=== PATIENT | female | born 1960 | race Caucasian/White ===

== ENCOUNTER 2022-01-06 04:22 | Day surgery (SDC) | payer OTHER ==
[2022-01-03 10:19] VITALS: BMI 19.5
[2022-01-06 11:17] VITALS: TEMP 98.2
[2022-01-06 11:45] VITALS: BP 154/69; PULSE 61
== END 2022-01-06 12:02 | disposition home or self-care (01) ==
LOC: JASU-ENDO 04:22
PROVIDERS: ATTEND Internal Medicine Gastroenterology
PROC: 06LY8CC Occlusion of Hemorrhoidal Plexus with Extraluminal Device, Via Natural or Artificial Opening Endoscopic (ICD-10-PCS; principal; 2022-01-06 10:30)
DX: Z12.11 Encounter for screening for malignant neoplasm of colon (principal); K64.8 Other hemorrhoids; Z80.0 Family history of malignant neoplasm of digestive organs

== ENCOUNTER 2023-10-06 12:20 | Inpatient (IN) | payer BC ==
[2023-10-06] MEDS ORDERED: ACETAMINOPHEN INJECTION 100 ML IVPB ONE (13:44)
[2023-10-06] MEDS ORDERED: ONDANSETRON 4 MG/2 ML VIAL ONE (13:44)
[2023-10-06] MEDS: ACETAMINOPHEN 1000 MG/100 ML BAG IVPB ONE (14:20)
[2023-10-06] MEDS: ONDANSETRON 4 MG/2 ML VIAL IVPUSH ONE (14:30)
[2023-10-06 14:40] LABS: HEMATOCRIT 22.6 % (32.4-45.2); HEMOGLOBIN 7.6 G/dL (10.7-15.3); MCH 27.7 pg (25.7-33.7); MCHC 33.4 g/dl (32.0-36.0); MEAN CELL VOLUME 82.8 fl (80-96); MEAN PLT VOLUME 7.4 fl (7.5-11.1); PLATELET COUNT 427.1 10^3/uL (134-434); RBC 2.73 10^6/uL (3.60-5.2); RDW 14.1 % (11.6-15.6); WHITE BLOOD COUNT 12.2 10^3/uL (4.0-10.8)
[2023-10-06 14:44] LABS: PLATELET ESTIMATE ADEQUATE
[2023-10-06 14:59] LABS: ALBUMIN 3.2 g/dl (3.4-5.0); BILIRUBIN,TOTAL 0.5 mg/dl (0.2-1); CALCIUM 8.3 mg/dl (8.5-10.1); CREATININE 0.5 mg/dl (0.6-1.3); POTASSIUM 3.5 mmol/L (3.5-5.1); TOT PROT 5.9 g/dl (6.4-8.2)
[2023-10-06] MEDS ORDERED: ACETAMINOPHEN 1000 MG/100 ML BAG IVPB PRN (21:29)
[2023-10-06 22:15] LABS: HEMATOCRIT 26.5 % (32.4-45.2); MCH 28.1 pg (25.7-33.7); MCHC 33.9 g/dl (32.0-36.0); MEAN CELL VOLUME 82.7 fl (80-96); MEAN PLT VOLUME 7.2 fl (7.5-11.1); RDW 14.3 % (11.6-15.6); WHITE BLOOD COUNT 8.3 10^3/uL (4.0-10.8)
[2023-10-06 22:34] LABS: ACTIVATED PTT 29.8 SECONDS (25.2-36.5); INR 1.47 (0.83-1.09)
[2023-10-07 00:47] LABS: LDH 147 U/L (84-246)
[2023-10-07 00:55] LABS: IRON SERUM 27 ug/dL (50-175); TOTAL IRON BINDING CAPACITY 196 ug/dL (250-450)
[2023-10-07] MEDS: LACTOBACILLUS ACIDOPHILUS 1 TABLET PO SCH (09:48)
[2023-10-07] MEDS: MULTIVITAMINS (DAILY MVI) TABLET (FP) PO SCH (09:48)
[2023-10-07] MEDS ORDERED: FERRIC CARBOXYMALTOSE 750 MG in SODIUM CHLORIDE 250 ML IVPB SCH (11:30)
[2023-10-07] MEDS ORDERED: ACETAMINOPHEN 325 MG TABLET (FP) PO PRN (21:16)
[2023-10-08 09:31] VITALS: RESP 18
[2023-10-08 13:51] LABS: HEMATOCRIT 28.5 % (32.4-45.2); HEMOGLOBIN 9.7 G/dL (10.7-15.3); MCH 28.2 pg (25.7-33.7); MCHC 33.9 g/dl (32.0-36.0); MEAN CELL VOLUME 83.2 fl (80-96); MEAN PLT VOLUME 7.5 fl (7.5-11.1); PLATELET COUNT 460.7 10^3/uL (134-434); RBC 3.42 10^6/uL (3.60-5.2); RDW 14.5 % (11.6-15.6)
[2023-10-08] MEDS: [UNRECOGNIZED DRUG - OTHER] PO SCH (13:52)
[2023-10-08 14:00] LABS: ALBUMIN 3.4 g/dl (3.4-5.0); BILIRUBIN,TOTAL 0.5 mg/dl (0.2-1); CALCIUM 9.1 mg/dl (8.5-10.1); CREATININE 0.7 mg/dl (0.6-1.3); MAGNESIUM 1.9 mg/dL (1.8-2.4); PHOSPHOROUS 4.2 (2.5-4.9); POTASSIUM 4.6 mmol/L (3.5-5.1); TOT PROT 6.4 g/dl (6.4-8.2)
[2023-10-08 15:22] VITALS: BMI 18.8
[2023-10-08] MEDS: ALBUTEROL SO4 2.5/IPRATROPIUM 0.5 INH SOL 3 ML VIAL.NEB. NEB SCH (16:34)
[2023-10-09 09:35] VITALS: BP 113/60; PULSE 112; TEMP 97.9
[2023-10-10 08:09] LABS: CARCINOEMBRYONIC ANTIGEN 3.2 ng/mL (0.0-4.7)
== END 2023-10-09 10:00 | disposition home or self-care (01) | DRG 194 ==
LOC: FER 12:20 → FM/S 18:55
PROVIDERS: ADMIT Internal Medicine
DX: J18.9 Pneumonia, unspecified organism (principal); E87.1 Hypo-osmolality and hyponatremia; R64 Cachexia; Z68.1 Body mass index [BMI] 19.9 or less, adult; R04.2 Hemoptysis; D64.9 Anemia, unspecified; K86.89 Other specified diseases of pancreas; K21.9 Gastro-esophageal reflux disease without esophagitis; F17.210 Nicotine dependence, cigarettes, uncomplicated; R91.1 Solitary pulmonary nodule
CPT/HCPCS: 0241U-QW; 36415; 71046-TC-FY; 71250-TC; 74176-TC; 80048; 80053; 81003; 81015; 82378; 82436; 82533; 82728; 83540; 83550; 83615; 83690; 83735; 83930; 83935; 84100; 84133; 84300; 84439; 84443; 85027; 85045; 85610; 85730; 86301; 86850; 86900; 86901; 87040; 87070; 87086; 87205; 87899; 93005; 94640; 99285-25; J0131; J1439

== ENCOUNTER 2023-10-24 11:24 | Emergency (ER) | payer BC ==
[2023-10-24 11:34] VITALS: BMI 17.9
[2023-10-24 12:51] LABS: BASO % 0.6 % (0-2.0); EOS % 1.3 % (0-4.5); HEMATOCRIT 25.7 % (32.4-45.2); HEMOGLOBIN 8.6 GM/dL (10.7-15.3); LYMPH % 11.9 % (8-40); MCH 26.4 pg (25.7-33.7); MCHC 33.4 g/dl (32.0-36.0); MEAN CELL VOLUME 79.1 fl (80-96); MEAN PLT VOLUME 7.2 fl (7.5-11.1); MONO % 7.8 % (3.8-10.2); NEUT % 78.4 % (42.8-82.8); PLATELET COUNT 549 10^3/uL (134-434); RBC 3.25 M/mm3 (3.60-5.2); RDW 14.1 % (11.6-15.6); WHITE BLOOD COUNT 11.5 K/mm3 (4.0-10.0)
[2023-10-24 12:58] LABS: INR 1.41 (0.83-1.09); PROTHROMBIN TIME (PATIENT) 15.8 SEC (9.7-13.0)
[2023-10-24 13:00] LABS: ACTIVATED PTT 24.8 SECONDS (25.2-36.5)
[2023-10-24 13:10] LABS: POTASSIUM 4.6 mmol/L (3.5-5.1)
[2023-10-24 13:12] LABS: BLOOD UREA NITROGEN 7.7 mg/dL (7-18); CALCIUM 8.8 mg/dL (8.5-10.1)
[2023-10-24 13:13] LABS: ALBUMIN 2.4 g/dl (3.4-5.0)
[2023-10-24 13:15] LABS: CREATININE 0.5 mg/dL (0.55-1.3)
[2023-10-24 13:17] LABS: BILIRUBIN,TOTAL 0.5 mg/dL (0.2-1); TOT PROT 6.6 g/dl (6.4-8.2)
[2023-10-24] MEDS: SODIUM CHLORIDE 1,000 ML IV SCH (17:01)
[2023-10-24 18:31] VITALS: TEMP 98.9
[2023-10-24] MEDS ORDERED: ACETAMINOPHEN 325 MG TABLET (FP) ONE (19:55)
[2023-10-24] MEDS: ACETAMINOPHEN 500 MG TABLET (FP) PO ONE (20:03)
[2023-10-24 20:39] VITALS: BP 129/63; PULSE 102; RESP 16
[2023-10-25] MEDS ORDERED: ENOXAPARIN NA (PORCINE) 40 MG/0.4 ML DISP.SYRIN SQ SCH (10:00)
== END 2023-10-24 20:40 | disposition short-term general hospital (02) ==
LOC: JER 11:24 → INTOOBSV 15:29 → JERBED 15:29 → UNDOADMOB 15:29 → JERBED 15:32 → UNDOADMOB 15:32
DX: D64.9 Anemia, unspecified (principal); K86.89 Other specified diseases of pancreas; R53.1 Weakness; R06.02 Shortness of breath; R63.0 Anorexia; R53.81 Other malaise; K59.00 Constipation, unspecified; R63.4 Abnormal weight loss; Z20.822 Contact with and (suspected) exposure to COVID-19
CPT/HCPCS: 0241U-QW; 36415; 80053; 83690; 83735; 85025; 85610; 85730; 93005; 93010; 99285-25